=== PATIENT | female | born 1975 | race Caucasian/White ===

== ENCOUNTER 2017-01-07 18:09 | Emergency (ER) | payer SELFPAY ==
[2017-01-07 19:33] VITALS: BP 152/68
--- NOTE | 2017-01-07 19:45 | UC ---
Complaint Female HPI - HPI Summary HPI Summary: 41 YEAR OLD FEMALE PRESENTS WITH COMPLAINS OF URINARY URGENCY AND FREQUENCY. - History Of Current Complaint Chief Complaint: UCGU Stated Complaint: URINARY Time Seen by Provider: 01/07/17 19:44 Hx Obtained From: Patient Hx Last Menstrual Period: n/a Onset/Duration: Sudden Onset Timing: Constant Severity Initially: Moderate Severity Currently: Moderate - Allergies/Home Medications Allergies/Adverse Reactions: Allergies Allergy/AdvReac Type Severity Reaction Status Date / Time Latex Allergy Wheezing Verified 01/07/17 19:33 Penicillins Allergy Swelling Verified 01/07/17 19:33 Of Face,Lips,& Throat triple antibiotic ointmenbt Allergy Blisters Uncoded 01/07/17 19:33 PMH/Surg Hx/FS Hx/Imm Hx Previously Healthy: Yes - Surgical History Surgical History: Yes Surgery Procedure, Year, and Place: gallbladder 2008. hysterectomy, B/L oopherectomy 2009 preventative - Family History Known Family History: Positive: Diabetes - Social History Alcohol Use: Rare Substance Use Type: None Smoking Status (MU): Never Smoked Tobacco Review of Systems Constitutional: Negative Skin: Negative Eyes: Negative ENT: Negative Respiratory: Negative Cardiovascular: Negative Gastrointestinal: Negative Genitourinary: Frequency, Urgency Motor: Negative Neurovascular: Negative Musculoskeletal: Negative Neurological: Negative Psychological: Negative All Other Systems Reviewed And Are Negative: Yes Physical Exam Triage Information Reviewed: Yes Vital Signs: Initial Vital Signs Temp 36.4 C 01/07/17 19:26 Pulse 63 01/07/17 19:26 Resp 18 01/07/17 19:26 BP 152/68 01/07/17 19:26 Pulse Ox 100 01/07/17 19:26 Vital Signs Reviewed: Yes Eye Exam: Normal ENT Exam: Normal Dental Exam: Normal Neck exam: Normal Neck: Positive: 1 Respiratory Exam: Normal Cardiovascular Exam: Normal Abdominal Exam: Normal Musculoskeletal Exam: Normal Neurological Exam: Normal Psychological Exam: Normal Skin Exam: Normal Complaint Female Dx - Differential Dx/Diagnosis Provider Diagnoses: DYSURIA. URINARY FREQUNECY. URINARY URGENCY Discharge - Discharge Plan Condition: Stable Disposition: HOME Prescriptions: Nitrofurantoin Monohyd Macro [Macrobid] 100 mg PO BID PC #14 cap Patient Education Materials: Urinary Tract Infection in Women (ED) Referrals: Viet Recinos MD [Primary Care Provider] -
--- NOTE | 2017-01-11 07:11 | UC ---
Progress - Progress Note Progress Note: + e coli, sens to the macrobid she is on.
== END 2017-01-07 20:40 | disposition home or self-care (01) ==
LOC: UCCORT 18:09
DX: R30.0 Dysuria (principal); R35.0 Frequency of micturition; R39.15 Urgency of urination; Z90.49 Acquired absence of other specified parts of digestive tract; Z90.710 Acquired absence of both cervix and uterus; Z90.722 Acquired absence of ovaries, bilateral; Z88.0 Allergy status to penicillin; Z88.3 Allergy status to other anti-infective agents; Z91.040 Latex allergy status
CPT/HCPCS: 81003; 87077; 87086; 87186; 99212; G0463

== ENCOUNTER 2018-08-07 07:07 | Emergency (ER) | payer BC ==
[2018-08-07 07:26] VITALS: BP 143/82
--- NOTE | 2018-08-07 07:41 | UC ---
Skin Complaint HPI - HPI Summary HPI Summary: One day history of progressive left cheek swelling after she expressed a pustule on the left side of the cheek last night. No fever,but has increased swelling. No diplopia, no eye pain or photophobia. - History of Current Complaint Chief Complaint: UCSkin Time Seen by Provider: 08/07/18 07:34 Stated Complaint: SKIN COMPLAINT Hx Obtained From: Patient Hx Last Menstrual Period: n/a ?: No Onset/Duration: Gradual Onset Timing: Constant Onset Severity: Moderate Current Severity: Moderate Pain Intensity: 2 Location: Discrete - has indurated 1.5 cm area to the left of the nasal ala, without pointing. Skin mildly eroded, no pustule. Diffuse erythema and swelling extending from the lower eyelid, with swelling of the left upper lip. Aggravating Factor(s): Touch Alleviating Factor(s): Nothing Associated Signs & Symptoms: Positive: Negative. Negative: Fever, Chills - Allergy/Home Medications Allergies/Adverse Reactions: Allergies Allergy/AdvReac Type Severity Reaction Status Date / Time latex Allergy Wheezing Verified 08/07/18 07:27 Penicillins Allergy Swelling Verified 08/07/18 07:27 Of Face,Lips,& Throat triple antibiotic ointmenbt Allergy Blisters Uncoded 01/07/17 19:33 Home Medications: Home Medications Multivitamin [Once Daily] 1 each PO DAILY 08/07/18 [History Confirmed 08/07/18] PMH/Surg Hx/FS Hx/Imm Hx Previously Healthy: Yes - Obese, no hx of elevated blood sugars. - Surgical History Surgical History: Yes Surgery Procedure, Year, and Place: gallbladder 2007. hysterectomy, B/L oopherectomy 2009 preventative - Family History Known Family History: Positive: Diabetes - Social History Occupation: Employed Full-time Lives: With Family Alcohol Use: Occasionally Substance Use Type: None Smoking Status (MU): Never Smoked Tobacco Review of Systems All Other Systems Reviewed And Are Negative: Yes Constitutional: Positive: Negative Eyes: Negative: Blurred Vision, Diplopia, Eye Redness, Photophobia ENT: Positive: Negative Respiratory: Positive: Negative Cardiovascular: Positive: Negative Is Patient Immunocompromised?: No Physical Exam Triage Information Reviewed: Yes Appearance: Well-Appearing, Pain Distress - mild Vital Signs: Initial Vital Signs Temp 97.4 F 08/07/18 07:21 Pulse 64 08/07/18 07:21 Resp 18 08/07/18 07:21 BP 143/82 08/07/18 07:21 Pulse Ox 97 08/07/18 07:21 Eye Exam: Other - GALA, full pain free eye movements. Eyes: Positive: Conjunctiva Clear ENT: Positive: Pharynx normal Respiratory: Positive: Lungs clear Cardiovascular: Positive: RRR, No Murmur Musculoskeletal Exam: Normal Neurological Exam: Normal Skin Exam: Other - indurated 1.5cm area left cheek with diffuse soft tissue swelling of the left cheek. Swelling extends from the lower left lid to the upper lip. Course/Dx - Course Course Of Treatment: Begin clindamycin for cellulitis with possibl forming abscess of the left cheek. History of allergy to penicillins as an adult with oral swelling. There is no evidence of deeper abscess affecting eyel movements, but Brandee was cautioned to the emergency room should she have diplopia or periorbital pain or photophobia. - Differential Diagnoses - Skin Complaint Differential Diagnoses: Abscess, Cellulitis - Diagnoses Provider Diagnosis: Cellulitis and abscess of face Discharge - Sign-Out/Discharge Documenting (check all that apply): Patient Departure All imaging exams completed and their final reports reviewed: No Studies - Discharge Plan Condition: Stable Disposition: HOME Prescriptions: Clindamycin Cap(NF) [Clindamycin Cap 300 mg Cap(NF)] 300 mg PO Q6H #28 cap Patient Education Materials: Cellulitis (ED) Referrals: Viet Recinos MD [Primary Care Provider] - Additional Instructions: You have had the first dose of clindamycin. Keep the dose interval to approximately every 6 hours. Warm compress the area of possible abscess on the left cheek, and ensure a follow up evaluation for Thursday to determine if a drainage is going to be needd. IF YOU HAVE INCREASE IN SWELLING, FEVER, PAIN WITH EYE MOVEMENT OR DOUBLE VISION , PLEASE GO IMMEDIATELY TO THE EMERGENCY ROOM FOR FURTHER EVALUATION AND TREATMENT. You can use ibuprofen 600mg three times daily for pain or low grade fever. You should see improvement in the amount of swelling by tomorrow. - Billing Disposition and Condition Condition: STABLE Disposition: Home
[2018-08-07] MEDS ORDERED: Clindamycin CAP* 150 MG PO ONE (07:44)
== END 2018-08-07 08:12 | disposition home or self-care (01) ==
LOC: UCCORT 07:07
DX: L03.211 Cellulitis of face (principal); L02.01 Cutaneous abscess of face; Z88.0 Allergy status to penicillin
CPT/HCPCS: 99212; A9270-GY; G0463